=== PATIENT | male | born 1975 | race Two or more races ===

== ENCOUNTER 2019-04-07 20:14 | Emergency (ER) | payer SELFPAY ==
[~2019-04-07] VITALS: Ht 172.7 cm; Wt 75.0 kg
[2019-04-07] MEDS ORDERED: LEVETIRACETAM 500MG PREMIX 100 ML IV ONE (22:30)
[2019-04-07] MEDS ORDERED: SODIUM CHLORIDE 0.9% 1,000 ML IV ONE (22:33)
[2019-04-07 22:35] LABS: HEMATOCRIT. 42.6 % (42.0-52.0); HEMOGLOBIN. 14.2 g/dL (14.0-18.0); MEAN CORPUSCULAR HEMOGLOBIN 31.5 pg (28.0-32.0); MEAN CORPUSCULAR VOLUME 94.5 fL (80.0-94.0); MEAN PLATELET VOLUME 8.9 fl (7.4-10.4); PLATELET 211 x1000/uL (130-400); RED CELL DISTRIBUTION WIDTH 13.6 % (11.6-14.6)
[2019-04-07 22:42] LABS: CHLORIDE 108 mEq/L (98-107)
[2019-04-07 22:47] LABS: PARTIAL THROMBOPLASTIN TIME 23.4 sec (23.4-31.0); PROTHROMBIN TIME 10.5 sec (9.6-11.0)
[2019-04-07 23:08] LABS: PLATELET ESTIMATE NORMAL
[2019-04-07] MEDS ORDERED: MORPHINE SULFATE 4 MG/ML CPJ (NOT FOR IM USE) IV ONE (23:15)
[2019-04-07] MEDS ORDERED: ONDANSETRON HCL 4MG/2ML INJ IV ONE (23:15)
[2019-04-08 00:06] VITALS: BP 130/79
== END 2019-04-08 00:15 | disposition short-term general hospital (02) ==
LOC: ER 20:14
DX: S06.360A Traumatic hemorrhage of cerebrum, unspecified, without loss of consciousness, initial encounter (principal); S01.81XA Laceration without foreign body of other part of head, initial encounter; S29.9XXA Unspecified injury of thorax, initial encounter; H11.33 Conjunctival hemorrhage, bilateral; M54.9 Dorsalgia, unspecified; Y04.0XXA Assault by unarmed brawl or fight, initial encounter; Y93.89 Activity, other specified; Y92.89 Other specified places as the place of occurrence of the external cause; Y99.8 Other external cause status
CPT/HCPCS: 36415; 70450; 71045; 80053; 84484; 85025; 85610; 85730; 86850; 86900; 86901; 96365; 96375; 99291; J1953; J2270; J2405; J7030; 96361